=== PATIENT | male | born 1985 | race Caucasian/White ===

== ENCOUNTER → 2020-12-05 | Outpatient (CLI) | payer OTHER ==
--- NOTE | 2020-12-05 17:02 | US ---
EXAMINATION TYPE: US liver DATE OF EXAM: 12/05/2020 COMPARISON: NONE CLINICAL HISTORY: R74.01 Elevation of levels of liver. Elevated liver enzymes limited due to body hab itus had to scan intercostally. EXAM MEASUREMENTS: Study is limited due to large body habitus Liver Length: 15.6 cm no discrete hepatic mass or intrahepatic biliary dilatation. Gallbladder Wall: .3 cm CBD: 5.9 mm Right Kidney: 11.1 x 5.3 x 5.9 cm Pancreas: Obscured by overlying bowel gas Liver: appears wnl Gallbladder: No stones seen Evidence for sonographic Navarrete's sign: No CBD: Limited 5.9 mm is the upper limits of normal. Right Kidney: No hydronephrosis. No shadowing renal calculi. IMPRESSION: Study is limited due to large body habitus. 1. The pancreas is obscured by overlying bowel gas. 2. The common duct is poorly visualized, most likely measures 5.9 mm, which is at the upper limits of normal. 3. No gallstones, sludge, or pericholecystic fluid.
== END | disposition home or self-care (01) ==
LOC: RADUSWWP 08:52
PROVIDERS: ATTEND Family Medicine
DX: R74.01 Elevation of levels of liver transaminase levels (principal)
CPT/HCPCS: 76705